=== PATIENT | male | born 1985 | race Caucasian/White ===

== ENCOUNTER → 2022-12-09 | Outpatient (CLI) | payer OTHER, SELFPAY ==
[2022-12-09 10:40] LABS: Anion Gap 7 (5-15); BUN 18 mg/dL (7-18); BUN/Creat Ratio 19.3 RATIO (10-20); Chloride 109 mmol/L (98-107); Cholesterol 259 mg/dL (200); Creatinine, Serum 0.93 mg/dL (0.70-1.30); EST Glomerular Filtration Rate 96 mL/min (>60); Est Glom Filt Rate - Afr Amer 116 mL/min (>60); Glucose 101 mg/dL (74-106); High Density Lipoprotein 52 mg/dL; Potassium 3.7 mmol/L (3.5-5.1); Sodium Level 141 mmol/L (136-145); Triglycerides 131 mg/dL; Very Low Density Lipoprotein 26 mg/dL (5-40)
== END | disposition home or self-care (01) ==
LOC: MTLAB 07:04
PROVIDERS: PCP Family Medicine; Referring Provider Family Medicine; Visit Provider Family Medicine
DX: Z13.1 Encounter for screening for diabetes mellitus (principal); Z13.220 Encounter for screening for lipoid disorders
CPT/HCPCS: 36415; 80048; 80061

== ENCOUNTER 2023-12-10 04:10 | Emergency (ER) | payer OTHER, SELFPAY ==
[2023-12-10 04:10] VITALS: BP 161/93; PULSE 96; RESP 16; TEMP 36.8; O2SAT 99
[2023-12-10 04:19] VITALS: BP 140/78; PULSE 80; RESP 16; TEMP 36.7; O2SAT 97
--- NOTE | 2023-12-10 04:35 | CT_ITS ---
EXAM: CT ABDOMEN AND PELVIS WITHOUT INTRAVENOUS CONTRAST CLINICAL INDICATION: flank pain flank pain TECHNIQUE: Helically acquired images were obtained of the abdomen and pelvis without intravenous contrast. This CT exam was performed using one or more of the following dose reduction techniques: automated exposure control, adjustment of the mA and/or kV according to patient size, and/or use of iterative reconstruction technique. RADIATION DOSE: CTDIvol = 11.35 mGy, DLP = 629.62 mGy-cm COMPARISON: CT scan 10/24/2013. FINDINGS: LOWER THORAX: Unremarkable. Lung bases are clear. No cardiomegaly. No significant pericardial effusion. ABDOMEN: LIVER: Unremarkable. Homogeneous. GALLBLADDER AND BILE DUCTS: Unremarkable. No calcified gallstones. No gallbladder distention or wall edema. No intra- or extrahepatic biliary ductal dilation. PANCREAS: Unremarkable. No focal cystic mass. SPLEEN: Unremarkable. Normal size without focal cystic or solid mass. ADRENALS: Unremarkable. No nodules. KIDNEYS AND URETERS: There is a 4 mm nonobstructive right lower pole renal calculus, which was not demonstrated on the previous study. There is mild hydronephrosis of the right kidney. As seen on axial images 93-95, there is a 4 mm wide mid right ureteral calculus at the L3 level. A 4 mm wide mid right ureteral calculus was present at the L4 level on previous exam. This probably represent some new calculus. Retrograde migration of the previously demonstrated calculus remains a less likely possibility. STOMACH AND BOWEL: Unremarkable. No stomach or bowel distention. No focal inflammatory change. PELVIS: APPENDIX: A normal-appearing appendix is seen on axial images 122-140. BLADDER: Assessment of the urinary bladder is limited by nondistention. REPRODUCTIVE: Unremarkable as visualized. No mass. ABDOMEN and PELVIS: INTRAPERITONEAL SPACE: Unremarkable. No ascites or other fluid collection. No free air. BONES/JOINTS: There is a focal left posterior paracentral disc protrusion at the L5-S1 level, which mildly impinges upon the descending left S1 nerve root. This focal disc protrusion was not present on the previous study. There are multilevel degenerative changes in the visualized spine. No suspicious lytic or blastic abnormality. SOFT TISSUES: Unremarkable. No discrete abdominal or pelvic wall hernia. VASCULATURE: Unremarkable. Abdominal aorta is non-dilated. LYMPH NODES: Unremarkable. No enlarged lymph nodes. CT/Abdomen/Pelvis without Cont IMPRESSION: 1. 4 mm wide mid right ureteral calculus at the L3 level. There is associated mild right hydronephrosis. 2. Small nonobstructive right renal calculus. 3. New finding of a focal left posterior paracentral disc protrusion at the L5-S1 level. Electronically Signed: Sy Soni MD at 5:42 EDT Reading Location ID and State: [facility] / [place] , Service support ,
[2023-12-10] MEDS: Ketorolac 30 MG/ML Syringe IV (04:57)
[2023-12-10] MEDS: 0.9% Normal Saline (1000mL) 1,000 ML 999 ML IV (04:58)
[2023-12-10 05:08] LABS: Bacteria 0 SEEN /hpf (None Seen); Mucous, Urine 0 SEEN /hpf (<or=2+); Squamous Epithelial Cells - UA 0 SEEN /hpf (0-5); White Blood Cells 0 SEEN /hpf (0-5)
[2023-12-10 05:11] LABS: Absolute Lymphocyte Count 2.44 X10^3/uL (0.83-4.51); Absolute Neutrophil Count 3.3 X10^3/uL (2.0-7.7); Basophil# 0.06 X10^3/uL; Basophil% 0.9 % (0-1); Eosinophil# 0.33 X10^3/uL; Eosinophils% 4.9 % (0-5); Hematocrit 43.4 % (40-54); Hemoglobin 14.4 g/dL (13.0-16.5); Lymphocyte # 2.44 X10^3/ul (0.83-4.51); Lymphocyte % 36.3 % (19-41); Mean Corp Hgb Conc 33.2 g/dL (32-36); Mean Corpuscular Hgb 29.6 pg (27.0-32.0); Mean Corpuscular Volume 89.3 fL (80-94); Mean Platelet Vol. 11.6 fl (6.2-12.0); Monocyte# 0.61 X10^3/uL; Monocyte% 9.1 % (0-10); NRBC Flagged by Analyzer 0 % (0-5); Neutrophil # 3.26 X10^3/uL (2.7-7.7); Neutrophil % 48.5 % (47-70); Platelet Count 245 K/mm3 (150-450); RBC Distribution Width CV 12.3 % (11.6-14.6); RBC Distribution Width SD 40.1 fl (35.1-43.9); Red Blood Count 4.86 M/mm3 (4.6-6.2); White Blood Count 6.7 K/mm3 (4.4-11.0)
[2023-12-10 05:18] LABS: Color, Urine Yellow (Yellow); Glucose, Dipstick Normal (Normal); Ketone-Dipstick Negative (Negative); Leukocyte Esterase-Dipstick 25 /ul (Negative); Nitrite-Dipstick Negative (Negative); Occult Blood-Urine 250 /ul (Negative); Protein-Dipstick Negative (Negative); Urine Bilirubin Dipstick Negative (Negative); Urine Urobilinogen Normal (Normal)
[2023-12-10 05:19] LABS: Urine Clarity Clear (Clear)
[2023-12-10 05:22] LABS: Red Blood Cells-Urine 5-10 SEEN /hpf (0-5)
[2023-12-10 05:24] LABS: Anion Gap 6 (5-15); BUN 22 mg/dL (7-18); BUN/Creat Ratio 20.4 RATIO (10-20); Calcium,Total 9.2 mg/dL (8.5-10.1); Chloride 104 mmol/L (98-107); Creatinine, Serum 1.08 mg/dL (0.70-1.30); EST Glomerular Filtration Rate 81 mL/min (>60); Est Glom Filt Rate - Afr Amer 98 mL/min (>60); Estimated Creatinine Clearance 133.65 ml/min; Glucose 125 mg/dL (74-106); Potassium 3.6 mmol/L (3.5-5.1); Sodium Level 139 mmol/L (136-145)
--- NOTE | 2023-12-10 06:25 | EX.ED.DYSGE1 ---
HPI History of Present Illness Chief Complaint: Flank Pain Informant: patient Narrative Narrative: Patient is a 38-year-old male with remote history of kidney stone roughly 10 years ago. He states he was recently on a work trip and once he returned home he was able to lay down and go to bed. He states he was awoke from sleep with right-sided sharp flank pain that wraps towards his groin. He states that there was no trauma or excessive activity on his work trip. He denies any dysuria or hematuria or concern for STD. He states that the pain does not improve or worsen with motion which feels similar nature to his history of kidney stone and with concern for this comes in for evaluation [facility] Medical History (Updated 12/10/23 @ 06:[address] Brett Toledo, ) Kidney stone Home Medications ketorolac 10 mg tablet 10 mg PO Q6H PRN Pain ##20 10/24/13 [Rx Last Taken Unknown] oxycodone-acetaminophen 5 mg-325 mg tablet 1 - 2 tab PO Q4H PRN PRN Pain #20 tabs 10/24/13 [Rx Last Taken Unknown] ketorolac 10 mg tablet 10 mg PO Q6H PRN pain 5 days #20 tabs 12/10/23 [Rx Last Taken Unknown] ondansetron 4 mg disintegrating tablet 4 mg PO TID PRN nausea and vomiting #21 tabs 12/10/23 [Rx Last Taken Unknown] oxycodone-acetaminophen 5 mg-325 mg tablet (Percocet) 1 tab PO Q6H PRN pain 5 days #20 tabs 12/10/23 [Rx Last Taken Unknown] tamsulosin 0.4 mg capsule (Flomax) 0.4 mg PO DAILY #14 caps 12/10/23 [Rx Last Taken Unknown] Allergy/AdvReac Type Severity Reaction Status Date / Time No Known Allergies Allergy Verified 10/24/13 01:39 Social History Smoking Status: Never smoker [facility] ED Constitutional Constitutional ED: Denies chills or fever(s) ENT ENT ED: Denies sore throat Cardiovascular Cardiovascular: Denies chest pain Respiratory/Chest Respiratory/Chest: Denies cough or dyspnea Gastrointestinal Gastrointestinal: Reports abdominal pain; Denies diarrhea, nausea or vomiting Genitourinary Genitourinary ED: Denies dysuria or hematuria Musculoskeletal Musculoskeletal: Reports back pain Integumentary Denies rash Neurologic Neurologic: Denies headache(s) Hematologic/Lymphatic Hematologic/Lymphatic: Denies easy bleeding or easy bruising EXAM Physical Exam Const Vital Signs: 12/10/23 04:10 12/10/23 04:19 12/10/23 06:27 Temperature 98.3 F 98.1 F Temperature Source Oral Oral Pulse Rate 96 80 75 Respiratory Rate 16 16 16 Blood Pressure 161/93 H 140/78 H 123/79 H Blood Pressure Mean 115 98 93 Pulse Ox 99 97 98 Oxygen Delivery Method Room Air Room Air Room Air 12/10/23 06:58 Temperature 97.4 F L Temperature Source Pulse Rate 70 Respiratory Rate 16 Blood Pressure 139/98 H Blood Pressure Mean 111 Pulse Ox 99 Oxygen Delivery Method Positive well nourished and well developed General Appearance ED: well developed; Negative for pallor HEENT HEENT Narrative: Normocephalic atraumatic Eyes PERRL and EOMs intact bilaterally General Eye ED: Negative for scleral icterus Neck supple Resp normal respiratory effort and clear to auscultation bilaterally Cardio regular rate and regular rhythm Rate: other Other Details: Heart is regular rate and rhythm without murmurs rubs or gallops GI non-distended and no masses GI Narrative: There is reproducible right sided upper mid and lower abdominal pain consistent with pain in the flank/ureter. No voluntary guarding or rigidity No pulsatile mass or fluid wave Negative Padron sign. No pain over McBurney's point Auscultation: normoactive bowel sounds Palpation: soft Back/Spine Back/Spine Narrative: Positive right CVA pain noted Extremity normal to inspection Neuro oriented x3, CN's II-XII intact bilaterally and no sensory deficits noted Sensorium / Orientation: alert Motor Exam: strength 5/5 throughout Psych mental status grossly normal Skin no rashes or lesions noted, no wounds and skin turgor normal General Skin Exam: Negative for jaundice or pallor MDM MDM MDM Narrative Medical decision making narrative: Patient arrived to the ER hypertensive otherwise with stable vitals. History and exam is most consistent with kidney stone but there is potential for UTI/pyelonephritis/acute kidney injury. Secondary to his basic blood work was obtained as well as CT scan of the abdomen and pelvis. Urine showed blood consistent with kidney stone but no signs of infection. Creatinine is normal going against PINO. CT scan confirmed a 4 mm stone in the right mid ureter that correlates with his history and exam. After IV fluids and Toradol patient reported his pain level down to a value of a 3. At this time he is not in PINO he does not have urosepsis and his pain is controlled and therefore there is no need for admission or emergent urology consultation. Patient will be given symptomatic medications and can follow-up with urology on an outpatient basis History & Record Review Discussion w/independent historian: Patient Lab Data Attestation: I reviewed the patient's lab results. Labs: Laboratory Results - last 24 hr 12/10/23 05:01 WBC 6.7 RBC 4.86 Hgb 14.4 Hct 43.4 MCV 89.3 MCH 29.6 MCHC 33.2 RDW Std Deviation 40.1 RDW Coeff of Laura 12.3 Plt Count 245 MPV 11.6 Immature Gran % (Auto) 0.300 Neut % (Auto) 48.5 Lymph % (Auto) 36.3 [place] % (Auto) 9.1 Eos % (Auto) 4.9 Baso % (Auto) 0.9 Absolute Neuts (auto) 3.3 Absolute Lymphs (auto) 2.44 Nucleated RBC % 0 Sodium 139 Potassium 3.6 Chloride 104 Carbon Dioxide 29.0 Anion Gap 6 BUN 22 H Creatinine 1.08 Estim Creat Clear Calc 133.65 Est GFR (MDRD) Af Amer 98 Est GFR (MDRD) Non-Af 81 BUN/Creatinine Ratio 20.4 H Glucose 125 H Calcium 9.2 Urine Color Yellow Urine Clarity Clear Urine pH 5.0 Ur Specific [place] 1.020 Urine Protein Negative Urine Glucose (UA) Normal Urine Ketones Negative Urine Occult Blood 250 H Urine Nitrite Negative Urine Bilirubin Negative Urine Urobilinogen Normal Ur Leukocyte Esterase 25 H Urine RBC 5-10 SEEN Urine WBC 0 SEEN Ur Squamous Epith Cells 0 SEEN Urine Bacteria 0 SEEN Urine Mucus 0 SEEN Radiography Diagnostic Testing: Clinical Impression(s) from Imaging Studies Abdomen/Pelvis CT 12/10/23 04:35 IMPRESSION: 1. 4 mm wide mid right ureteral calculus at the L3 level. There is associated mild right hydronephrosis. 2. Small nonobstructive right renal calculus. 3. New finding of a focal left posterior paracentral disc protrusion at the L5-S1 level. Electronically Signed: Sy Soni MD at 5:42 EDT , Discharge Plan Triage Chief Complaint: Flank Pain ED Provider: Brett Toledo Dx/Rx/DC Orders Clinical Impression: Renal colic, Kidney stone on right side Instructions: ED Kidney Stone with Pain Prescriptions: New ketorolac 10 mg tablet 10 mg PO Q6H PRN (Reason: pain) 5 Days Qty: 20 0RF tamsulosin [Flomax] 0.4 mg capsule 0.4 mg PO DAILY Qty: 14 0RF oxycodone-acetaminophen [Percocet] 5-325 mg tablet 1 tab PO Q6H PRN (Reason: pain) 5 Days Qty: 20 0RF ondansetron 4 mg tablet,disintegrating 4 mg PO TID PRN (Reason: nausea and vomiting) Qty: 21 0RF No Action ketorolac 10 MG tablet 10 mg PO Q6H PRN (Reason: Pain) Qty: 20 0RF oxycodone-acetaminophen 1 TABLET tablet 1 - 2 tab PO Q4H PRN PRN (Reason: Pain) Qty: 20 0RF Stand Alone Forms: ED Work / School Excuse Primary Care Provider: Ted Rosario Referrals: Ted Rosario MD [Primary Care Provider] - Gideon Garcia MD [Med Staff - Active Staff] - Activity Restrictions/Additional Instructions: Return to the ER if you develop a fever of 100.4 or higher or your pain is not controlled with the prescribed medications. Otherwise follow-up with urology for repeat evaluation. Disposition Disposition: Home, Self Care Discharge Date/Time: 12/10/23 06:59
[2023-12-10 06:27] VITALS: BP 123/79; PULSE 75; RESP 16; O2SAT 98
[2023-12-10 06:58] VITALS: BP 139/98; PULSE 70; RESP 16; TEMP 36.3; O2SAT 99
== END 2023-12-10 06:59 | disposition home or self-care (01) ==
PROVIDERS: Emergency Provider Emergency Medicine; PCP Family Medicine; Visit Provider Emergency Medicine
DX: N13.2 Hydronephrosis with renal and ureteral calculous obstruction (principal); R31.9 Hematuria, unspecified
CPT/HCPCS: 74176; 80048; 81001; 85025; 96361; 96374; 99283; J7030; A4216